=== PATIENT | male | born 1995 | race Caucasian/White ===

== ENCOUNTER 2019-01-19 18:08 | Emergency (ER) | payer SELFPAY ==
[2019-01-19] MEDS: IBUPROFEN 600 MG TAB PO (18:50)
[2019-01-19] MEDS: OXYCODONE/ACETAMINOPHEN (10/325) TAB PO (18:50)
== END 2019-01-19 22:26 | disposition home or self-care (01) ==
LOC: FTE 18:08
DX: S42.021A Displaced fracture of shaft of right clavicle, initial encounter for closed fracture (principal); F17.210 Nicotine dependence, cigarettes, uncomplicated; V29.40XA Motorcycle driver injured in collision with unspecified motor vehicles in traffic accident, initial encounter
CPT/HCPCS: 73000; 73030-RT; 73080-RT; 99283-25